=== PATIENT | female | born 1990 | race Caucasian/White ===

== ENCOUNTER 2017-10-05 17:37 | Emergency (ER) | payer BC ==
[2017-10-05 17:54] VITALS: BP 111/73; PULSE 98; TEMP 98.5; BMI 25.6
--- NOTE | 2017-10-05 18:17 | PDOC ---
Rapid Medical Evaluation Chief Complaint: Revisit,Radiology Variance Time Seen by Provider: 10/05/17 17:55 Medical Evaluation: Allergies Allergy/AdvReac Type Severity Reaction Status Date / Time No Known Allergies Allergy Verified 10/05/17 17:48 Vital Signs Temp Pulse Resp BP Pulse Ox 98.5 F 98 H 18 111/73 100 10/05/17 17:48 10/05/17 17:48 10/05/17 17:48 10/05/17 17:48 10/05/17 17:48 10/05/17 18:14 Pt c/o: sent by dr infante to check heart rate. seen in office today and unable to perform an ultrasound on office. pt states has had a heart rate detected on last exam 3 weeks ago. Pt on brief exam: vss, no abd tenderness Pt ordered for : u/s pt to proceed to the ED Discharge Disposition - Diagnosis 12 weeks gestation of - Referrals - Patient Instructions - Post Discharge Activity
--- NOTE | 2017-10-05 18:53 | PDOC ---
History of Present Illness - General Chief Complaint: Revisit,Radiology Variance Stated Complaint: EVALUATION/13 WKS Time Seen by Provider: 10/05/17 17:55 - History of Present Illness Initial Comments: 11 Week gravid 26 y/o presents for evaluation at the urging of her logistic manager for lack of heart sounds on Doppler in the office today. No Complaints. 10/05/17 18:49 Past History - Past Medical History Allergies/Adverse Reactions: Allergies Allergy/AdvReac Type Severity Reaction Status Date / Time No Known Allergies Allergy Verified 10/05/17 17:48 Home Medications: Ambulatory Orders NK [No Known Home Medication] 10/05/17 Asthma: Yes COPD: No Other medical history: Lupus, sgojgens disease - Immunization History Immunization Up to Date: Yes - Suicide/Smoking/Psychosocial Hx Smoking History: Never smoked Review of Systems - Review of Systems All Other Systems: Reviewed and Negative *Physical Exam - Vital Signs Last Vital Signs Temp Pulse Resp BP Pulse Ox 98.5 F 98 H 18 111/73 100 10/05/17 17:48 10/05/17 17:48 10/05/17 17:48 10/05/17 17:48 10/05/17 17:48 - Physical Exam Comments: GENERAL: The patient is awake, alert, and fully oriented, in no acute distress. HEAD: Normal with no signs of trauma. EYES: sclera anicteric, conjunctiva clear. ENT: Ears normal NECK: Normal range of motion NEUROLOGICAL: Cranial nerves II through XII grossly intact. Normal speech, normal gait. PSYCH: Tearful affect 10/05/17 18:50 *DC/Admit/Observation/Transfer Diagnosis at time of Disposition: 12 weeks gestation of , demise - Discharge Dispostion Disposition: HOME Condition at time of disposition: Stable Decision to Admit order: No - Referrals Referrals: Kristopher Roe MD [Staff Physician] - - Patient Instructions Printed Discharge Instructions: DI for Miscarriage Additional Instructions: Follow-up with your logistic manager tomorrow for further evaluation and treatment options return to the emergency room should he develop any symptoms of pain or bleeding. - Post Discharge Activity
== END 2017-10-05 19:19 | disposition home or self-care (01) ==
LOC: JERFT 17:37
DX: O99.351 Diseases of the nervous system complicating pregnancy, first trimester (principal); Z3A.12 12 weeks gestation of pregnancy; O03.9 Complete or unspecified spontaneous abortion without complication; M35.00 Sjogren syndrome, unspecified; M32.9 Systemic lupus erythematosus, unspecified; J45.909 Unspecified asthma, uncomplicated
CPT/HCPCS: 76801-TC; 99281-25